=== PATIENT | female | born 1960 | race Two or more races ===

== ENCOUNTER 2019-05-09 11:46 | Emergency (ER) | payer SELFPAY ==
[~2019-05-09] VITALS: Ht 160 cm; Wt 81.6 kg
[2019-05-09 13:00] VITALS: BP 142/84
[2019-05-09] MEDS ORDERED: HYDROcodone-ACET 7.5/325MG TAB PO ONE (13:45)
== END 2019-05-09 14:09 | disposition home or self-care (01) ==
LOC: EDBD 11:46 → ER 11:46
DX: S52.572A Other intraarticular fracture of lower end of left radius, initial encounter for closed fracture (principal); S52.615A Nondisplaced fracture of left ulna styloid process, initial encounter for closed fracture; E78.5 Hyperlipidemia, unspecified; W19.XXXA Unspecified fall, initial encounter; Y93.89 Activity, other specified; Y99.8 Other external cause status; Y92.89 Other specified places as the place of occurrence of the external cause
CPT/HCPCS: 29125; 73110

== ENCOUNTER 2021-04-01 09:23 | Emergency (ER) | payer OTHER ==
[~2021-04-01] VITALS: Ht 157.5 cm; Wt 104.3 kg
[2021-04-01] MEDS ORDERED: ONDANSETRON HCL 4 MG/2 ML VIAL IV ONE (09:45)
[2021-04-01 10:57] LABS: Basophils # (auto) 0 10 ^3/uL (0-0.2); Basophils % (auto) 0.3 % (0.0-2.0); Eosinophils # (auto) 0.1 10 ^3/uL (0-0.8); Eosinophils % (auto) 1.1 % (0.0-7.0); Hematocrit 39.7 % (36.0-46.0); Hemoglobin 13.4 g/dL (12.2-16.2); Lymphocytes # (auto) 0.9 10 ^3/uL (0.4-5.4); Lymphocytes % (auto) 10.3 % (10.0-50.0); Mean Corpuscular Hemoglobin 29.5 pg (28.0-32.0); Mean Corpuscular Hgb Conc. 33.8 g/dL (32.0-36.0); Mean Corpuscular Volume 87.4 fL (80.0-100.0); Monocytes # (auto) 0.3 10 ^3/uL (0-1.3); Monocytes % (auto) 3.9 % (0.0-12.0); Neutrophils % (auto) 84.4 % (37.0-80.0); Nucleated Red Blood Cells % 0.4 %; Platelet Count (auto) 286 10^3/uL (140-450); Red Blood Cells 4.54 10^6/uL (4.0-5.20); Red Cell Distribution Width 13.8 % (11.8-14.3); White Blood Cell 8.3 10^3/uL (4.4-10.8)
[2021-04-01 11:15] LABS: Albumin 3.8 g/dL (3.4-5.0); Anion Gap 9 (5-15); Blood Urea Nitrogen 16 mg/dL (7-18); Calcium 8.6 mg/dL (8.5-10.1); Carbon Dioxide 24 mmol/L (21-32); Chloride 108 mmol/L (98-107); Glucose 98 mg/dL (74-106); Magnesium 2.4 mg/dL (1.6-2.6); Potassium 3.9 mmol/L (3.5-5.1); Sodium 141 mmol/L (136-145)
[2021-04-01 11:21] LABS: Alanine Aminotransferase 28 U/L (13-56); Alkaline Phosphatase 96 U/L (45-117); Aspartate Aminotransferase 18 U/L (15-37); BUN/Creatinine Ratio 25.4; Bilirubin, Total 0.6 mg/dL (0.2-1.0); GFR African American 123 mL/min; GFR Non-African American 102 mL/min; Total Protein 6.9 g/dL (6.4-8.2)
[2021-04-01 11:48] VITALS: BP 103/60
== END 2021-04-01 11:50 | disposition home or self-care (01) ==
LOC: EDBD 09:23 → EDUNIT# 09:23 → ER 09:23
DX: K52.9 Noninfective gastroenteritis and colitis, unspecified (principal); R07.9 Chest pain, unspecified; E78.5 Hyperlipidemia, unspecified
CPT/HCPCS: 36415; 70450; 71045; 74176; 80053; 83735; 84484; 85025; 93005; 96374; 99285; J2405

== ENCOUNTER 2021-04-07 00:45 | Emergency (ER) | payer OTHER ==
[~2021-04-07] VITALS: Ht 165.1 cm; Wt 90.7 kg
[2021-04-07] MEDS ORDERED: ONDANSETRON HCL 4 MG/2 ML VIAL ONE (01:11)
[2021-04-07] MEDS ORDERED: ONDANSETRON HCL 4 MG/2 ML VIAL IV ONE (01:30)
[2021-04-07] MEDS ORDERED: SODIUM CHLORIDE 0.9% 1,000 ML IV ONE (01:30)
[2021-04-07 01:33] LABS: Basophils # (auto) 0 10 ^3/uL (0-0.2); Basophils % (auto) 0.5 % (0.0-2.0); Eosinophils # (auto) 0.2 10 ^3/uL (0-0.8); Eosinophils % (auto) 1.8 % (0.0-7.0); Hematocrit 39.8 % (36.0-46.0); Hemoglobin 13.6 g/dL (12.2-16.2); Lymphocytes # (auto) 2.1 10 ^3/uL (0.4-5.4); Lymphocytes % (auto) 20.4 % (10.0-50.0); Mean Corpuscular Hemoglobin 29.6 pg (28.0-32.0); Mean Corpuscular Hgb Conc. 34.2 g/dL (32.0-36.0); Mean Corpuscular Volume 86.4 fL (80.0-100.0); Monocytes # (auto) 0.5 10 ^3/uL (0-1.3); Monocytes % (auto) 5.1 % (0.0-12.0); Neutrophils # (auto) 7.3 10 ^3/uL (1.6-8.6); Neutrophils % (auto) 72.2 % (37.0-80.0); Nucleated Red Blood Cells % 0.1 %; Red Blood Cells 4.61 10^6/uL (4.0-5.20); Red Cell Distribution Width 13.9 % (11.8-14.3); White Blood Cell 10.1 10^3/uL (4.4-10.8)
[2021-04-07 01:49] LABS: Alanine Aminotransferase 27 U/L (13-56); Albumin 3.8 g/dL (3.4-5.0); Anion Gap 12 (5-15); Aspartate Aminotransferase 18 U/L (15-37); BUN/Creatinine Ratio 34.9; Blood Urea Nitrogen 30 mg/dL (7-18); Calcium 8.7 mg/dL (8.5-10.1); Carbon Dioxide 24 mmol/L (21-32); Chloride 103 mmol/L (98-107); GFR African American 86 mL/min; GFR Non-African American 71 mL/min; Glucose 166 mg/dL (74-106); Potassium 3.4 mmol/L (3.5-5.1); Sodium 139 mmol/L (136-145)
[2021-04-07 01:54] LABS: Alkaline Phosphatase 98 U/L (45-117); Bilirubin, Total 0.6 mg/dL (0.2-1.0); Total Protein 7.1 g/dL (6.4-8.2)
[2021-04-07] MEDS ORDERED: PROMETHAZINE HCL 25 MG/ML 1ML IV ONE (02:00)
[2021-04-07] MEDS ORDERED: MORPHINE SULFATE INJECTION 2 MG/ML SYRG IM ONE (02:00)
[2021-04-07 03:22] VITALS: BP 123/55
== END 2021-04-07 03:34 | disposition home or self-care (01) ==
LOC: EDUNIT# 00:45 → ER 00:45 → EDBD 00:45 → ER 03:34
DX: R51.9 Headache, unspecified (principal); R11.2 Nausea with vomiting, unspecified; I10 Essential (primary) hypertension; E78.5 Hyperlipidemia, unspecified
CPT/HCPCS: 36415; 70450; 74176; 80053; 81002; 84484; 85025; 93005; 96361; 96372; 96374; 96375; 99285; J2270; J2405; J2550; J7030

== ENCOUNTER 2025-07-07 17:00 | Inpatient (IN) | payer OTHER ==
[~2025-07-07] VITALS: Ht 170.2 cm; Wt 104.2 kg
--- NOTE | 2025-07-07 17:12 | ED.PDOC ---
History of Present Illness HPI Comments This is a 64-year-old female with past medical history of vertigo presented to the ER via EMS with a complaint of severe vertigo and nausea whenever she is moving her head for last 2 hours prior to this visit. She is Citizen Of [place] speaking and severely nauseous and dizzy not able to give any history. Chief Complaint: Dizziness Time Seen by MD: 17:01 Primary Care Provider: KODAKK Allergies: Coded Allergies: NO KNOWN ALLERGIES (Unverified , 05/09/19) Information Source: Patient Mode of Arrival: EMS Severity: Severe Timing: Hours Duration: Since onset Prehospital treatment: None Past Medical History PAST MEDICAL HISTORY: High Lipids, HTN Past Medical History (Other): Vertigo Surgical History: Denies all surgeries [employer] History: Denies all [employer] Hx Family History Family History: Unknown Social History Smoker: Non-Smoker Alcohol: Denies ETOH Use Drugs: Denies Drug Use Lives In: Home Constitutional: denies: chills, diaphoresis, fatigue, fever, malaise, sweats, weakness, others EENTM: denies: blurred vision, double vision, ear bleeding, ear discharge, ear drainage, ear pain, ear ringing, eye pain, eye redness, hearing loss, mouth pain, mouth swelling, nasal discharge, nose bleeding, nose congestion, nose pain, photophobia, tearing, throat pain, throat swelling, voice changes, others Respiratory: denies: cough, hemoptysis, orthopnea, SOB at rest, shortness of breath, SOB with excertion, stridor, wheezing, others Cardiovascular: reports: dizzy spells; denies: chest pain, diaphoresis, Dyspnea on exertion, edema, irregular heart beat, left arm pain, lightheadedness, palpitations, PND, syncope, others Gastrointestinal: reports: nausea; denies: abdomen distended, abdominal pain, blood streaked bowels, constipated, diarrhea, dysphagia, difficulty swallowing, hematemesis, melena, poor appetite, poor fluid intake, rectal bleeding, rectal pain, vomiting, others Genitourinary: denies: abnormal vagina bleeding, burning, dyspareunia, dysuria, flank pain, frequency, hematuria, incontinence, pain, , vagina discharge, urgency, others Neurological: reports: dizziness; denies: fainting, headache, left sided numbness, left sided weakness, numbness, paresthesia, pre-existing deficit, right sided numbness, right sided weakness, seizure, speech problems, tingling, tremors, weakness, others Musculoskeletal: denies: back pain, gout, joint pain, joint swelling, muscle pain, muscle stiffness, neck pain, others Integumetry: denies: bruises, change in color, change in hair/nails, dryness, laceration, lesions, lumps, rash, wounds, others Allergic/Immunocompromised: denies: Difficulty Healing, Frequent Infections, Hives, Itching, others Hematologic/Lymphatic: denies: anemia, blood clots, easy bleeding, easy bruising, swollen glands, others Endocrine: denies: excessive hunger, excessive sweating, excessive thirst, excessive urination, flushing, intolerance to cold, intolerance to heat, unexplained weight gain, unexplained weight loss, others Psychiatric: denies: anxiety, bipolar disorder, depression, hopeless, panic disorder, schizophrenia, sleepless, suicidal, others Physical Exam General Appearance: Moderate Distress HEENT: Normal ENT Inspection, Pharynx Normal, TMs Normal Neck: Full Range of Motion, Non-Tender, Normal, Normal Inspection Respiratory: Chest Non-Tender, Lungs Clear, No Accessory Muscle Use, No Respiratory Distress, Normal Breath Sounds Cardiovascular: No Edema, No JVD, No Murmur, No Gallop, Normal Peripheral Pulses, Regular Rate/Rhythm Breast Exam: Deferred Gastrointestinal: No Organomegaly, Non Tender, No Pulsatile Mass, Normal Bowel Sounds, Soft Genitalia: Deferred Pelvic: Deferred Rectal: Deferred Extremities: NOT DONE Neurologic: Dizziness Cerebellar Function: NOT DONE Reflexes: NOT DONE Skin: NOT DONE Peripheral Pulses: 2+ carotid (R), 2+ carotid (L), 2+ femoral (R), 2+ femoral (L), 2+ dorsalis pedis (R), 2+ dorsalis pedis (L), 2+ Radial (R), 2+ Radial (L), 2+ Brachial (R), 2+ Brachial (L) Lymphatic: NOT DONE Was a procedure done? Was a procedure done?: No Differential Dx Considerations may include: Dizziness, BPPV, autonomic instability, CVA X-Ray, Labs, Meds, VS Vital Signs Date Time Temp Pulse Resp B/P (MAP) Pulse Ox O2 Delivery O2 Flow Rate FiO2 07/07/25 17:59 81 20 99 Room Air* 0 21 07/07/25 17:59 98.4 81 20 109/77 (88) 99 98.4 07/07/25 17:10 70 07/07/25 17:07 97.5 84 17 149/93 97 97.5 Lab Test 07/07/25 17:37 07/07/25 17:32 Range/Units B-Type Natriuretic Peptide 40.21 0-100 pg/mL White Blood Count 10.4 4.4-10.8 10^3/uL Red Blood Count 5.26 H 4.0-5.20 10^6/uL Hemoglobin 15.0 12.2-16.2 g/dL Hematocrit 44.0 36.0-46.0 % Mean Corpuscular Volume 83.6 80.0-100.0 fL Mean Corpuscular Hemoglobin 28.5 28.0-32.0 pg Mean Corpuscular Hemoglobin Concent 34.0 32.0-36.0 g/dL Red Cell Distribution Width 14.2 11.8-14.3 % Platelet Count 292 140-450 10^3/uL Mean Platelet Volume 7.8 6.9-10.8 fL Neutrophils (%) (Auto) 78.1 37.0-80.0 % Lymphocytes (%) (Auto) 16.2 10.0-50.0 % Monocytes (%) (Auto) 4.9 0.0-12.0 % Eosinophils (%) (Auto) 0.4 0.0-7.0 % Basophils (%) (Auto) 0.4 0.0-2.0 % Neutrophils # (Auto) 8.1 1.6-8.6 10 ^3/uL Lymphocytes # (Auto) 1.7 0.4-5.4 10 ^3/uL Monocytes # (Auto) 0.5 0-1.3 10 ^3/uL Eosinophils # (Auto) 0 0-0.8 10 ^3/uL Basophils # (Auto) 0 0-0.2 10 ^3/uL Nucleated Red Blood Cells 0.1 % Sodium Level 143 136-145 mmol/L Potassium Level 4.1 3.5-5.1 mmol/L Chloride Level 108 H 98-107 mmol/L Carbon Dioxide Level 22 20-31 mmol/L Anion Gap 13 5-15 Blood Urea Nitrogen 24 H 9-23 mg/dL Creatinine 0.77 0.550-1.02 mg/dL Glomerular Filtration Rate Calc 85 >90 mL/min BUN/Creatinine Ratio 31.2 H 10.0-20.0 Serum Glucose 150 H 74-106 mg/dL Calcium Level 9.6 8.7-10.4 mg/dL Troponin I High Sensitivity < 3 L </=34 ng/L Current Medications Medications (Trade) Dose Ordered Sig/Tamra Route Start Time Stop Time Status Last Admin Sodium Chloride 500 ml @ 500 mls/hr Q1H ONCE IV 07/07/25 17:15 07/07/25 18:14 DC 07/07/25 17:47 Ondansetron HCl (Zofran) 4 mg ONCE ONCE IV 07/07/25 17:15 07/07/25 17:16 DC 07/07/25 17:47 Metoclopramide HCl (Reglan Injection) 5 mg ONCE ONCE IV 07/07/25 18:00 07/07/25 18:01 DC 07/07/25 18:09 Lorazepam (Ativan Inj) 0.5 mg ONCE ONCE IV 07/07/25 18:45 07/07/25 18:46 DC 07/07/25 18:48 X-Ray, Labs, Meds, VS Comment Procedure: CT HEAD WITHOUT CONTRAST Study Date and Requested Time: 07/07/2025 05:10 PM History: Dizziness Comparison: HEAD WITHOUT CONTRAST on DOS: 04/07/21, HEAD WITHOUT CONTRAST on DOS: 04/01/21 Dose: CTDI: 63.52 mGy DLP: 1251.53 mGycm Technique: Multiplanar images obtained through the brain without intravenous contrast. Findings: Normal brain volume and formation. Mild to moderate chronic small vessel ischemic changes. No hemorrhages, masses, mass effect, midline shift, herniation or cytotoxic edema following a large vascular territory. No intra-axial or extra-axial fluid collections. No evidence of hydrocephalus. The basal cisterns are patent. The pituitary gland, sella and parasellar regions are unremarkable. The cerebellar tonsils are in normal position. The cerebellum is unremarkable. The orbits and globes are unremarkable. Minimal mucoperiosteal thickening of the ethmoid air cells. Otherwise, the paranasal sinuses and mastoids are clear. There are no worrisome calvarial lesions. Right frontal scalp scarring. Heterogeneous appearance of the parotid glands. Impression: No evidence of acute intracranial abnormality. If symptoms persist, consider MRI for further evaluation. CHEST RADIOGRAPH Indication: Dizziness Technique: XY CHEST PORTABLE COMPARISON: None FINDINGS: The cardiac silhouette is unremarkable. Interstitial airspace opacities which could represent sequela of pulmonary edema, atypical infection, chronic lung changes/disease.. The lungs demonstrate bilateral patchy airspace opacities. The pulmonary vasculature is prominent. Small bilateral pleural effusions. There is no pneumothorax. Aortic atherosclerotic disease. IMPRESSION: As above Images Reviewed?: Images reviewed and evaluated by me Time of 1ST Reevaluation: 18:00 Reevaluation 1ST: Unchanged Patient Education/Counseling: Diagnosis, Treatment Family Education/Counseling: No Family Present Comments This is a 64-year-old female with past medical history of vertigo presented to the ER via EMS severe dizziness and nausea since 3:00 p.m. today History was limited as the patient was severely dizzy and nauseous The patient was given IV bolus, IV ondansetron 4 mg once After giving ondansetron the patient was still complaining of nausea than IV metoclopramide 5 mg once given Can not give meclizine p.o. because of nausea The patient was extremely anxious and Ativan 0.5 mg IV given to calm her down. CT scan of the head without IV contrast demonstrated normal study. Regarding patient's presentation and clinical exam preliminary diagnosis dizziness likely due to BPPV Considering patient's age, patient need inpatient admission for further evaluation and management of dizziness. SEPSIS Sepsis Screen Date sepsis recognized/suspect: Jul 07, 2025 Time Sepsis recognized/suspect: 1700 Recent Procedure: No On Antibiotic Therapy: No Respiratory Rate >20: No Heart Rate >90: No Temp<36 C (96.8 F) or >38.3 C: No SBP <90 or MAP <65 mmHG: No New Acute Mental Status Change: No Is the patient on CPAP, BIPAP,: No Physician Orders Chest Portable (07/07/25 17:08) Urinalysis (07/07/25 17:08) Head Without Contrast (07/07/25 17:08) Orthostatic Vital Signs (07/07/25 18:01) Vital Signs Date Time Temp Pulse Resp B/P (MAP) Pulse Ox O2 Delivery O2 Flow Rate FiO2 07/07/25 17:59 81 20 99 Room Air* 0 21 07/07/25 17:59 98.4 81 20 109/77 (88) 99 98.4 07/07/25 17:10 70 07/07/25 17:07 97.5 84 17 149/93 97 97.5 Laboratory Tests Test 07/07/25 17:32 White Blood Count 10.4 10^3/uL (4.4-10.8) Medications Medications Dose Ordered Sig/Tamra Route Start Time Stop Time Status Last Admin Dose Admin Lorazepam 0.5 mg ONCE ONCE IV 07/07/25 18:45 07/07/25 18:46 DC 07/07/25 18:48 Metoclopramide HCl 5 mg ONCE ONCE IV 07/07/25 18:00 07/07/25 18:01 DC 07/07/25 18:09 Ondansetron HCl 4 mg ONCE ONCE IV 07/07/25 17:15 07/07/25 17:16 DC 07/07/25 17:47 Sodium Chloride 500 ml @ 500 mls/hr Q1H ONCE IV 07/07/25 17:15 07/07/25 18:14 DC 07/07/25 17:47 Departure 1 Departure Time of Disposition: 18:08 Impression: Primary Impression: Dizziness Additional Impression: Benign paroxysmal positional vertigo Disposition: 30 STILL A PATIENT Admit to: Tele Condition: Guarded Critical Care Note Critical Care Time?: No Stability Stability form required: SHERICE Brizuela RESIDENT Jul 07, 2025 17:11
[2025-07-07] MEDS ORDERED: ONDANSETRON HCL 4 MG/2 ML VIAL IV ONE (17:15)
--- NOTE | 2025-07-07 17:43 | DVH ---
Procedure: CT HEAD WITHOUT CONTRAST Study Date and Requested Time: 07/07/2025 05:10 PM History: Dizziness Comparison: HEAD WITHOUT CONTRAST on DOS: 04/07/21, HEAD WITHOUT CONTRAST on DOS: 04/01/21 Dose: CTDI: 63.52 mGy DLP: 1251.53 mGycm Technique: Multiplanar images obtained through the brain without intravenous contrast. Findings: Normal brain volume and formation. Mild to moderate chronic small vessel ischemic changes. No hemorrhages, masses, mass effect, midline shift, herniation or cytotoxic edema following a large v ascular territory. No intra-axial or extra-axial fluid collections. No evidence of hydrocephalus. The basal cisterns are patent. The pituitary gland, sella and parasellar regions are unremarkable. The cerebellar tonsils are in nor mal position. The cerebellum is unremarkable. The orbits and globes are unremarkable. Minimal mucoperiosteal thickening of the ethmoid air cells. Otherwise, the paranasal sinuses and mastoids are clear. There are no worrisome calvarial lesions. Ri ght frontal scalp scarring. Heterogeneous appearance of the parotid glands. Impression: No evidence of acute intracranial abnormality. If symptoms persist, consider MRI for further evaluati on.
[2025-07-07] MEDS: ONDANSETRON HCL 4 MG/2 ML VIAL IV ONE (17:47)
[2025-07-07] MEDS: SODIUM CHLORIDE 0.9% 500 ML IV ONE (17:47)
--- NOTE | 2025-07-07 17:54 | DVH ---
CHEST RADIOGRAPH Indication: Dizziness Technique: XY CHEST PORTABLE COMPARISON: None FINDINGS: The cardiac silhouette is unremarkable. Interstitial airspace opacities which could represent sequela of pulmonary edema, atypical infection, chronic lung changes/disease.. The lungs demonstrate bilater al patchy airspace opacities. The pulmonary vasculature is prominent. Small bilateral pleural effusio ns. There is no pneumothorax. Aortic atherosclerotic disease. IMPRESSION: As above
[2025-07-07 17:59] VITALS: PULSE 81; RESP 20; O2SAT 99
[2025-07-07 18:02] LABS: Hematocrit 44.0 % (36.0-46.0); Hemoglobin 15.0 g/dL (12.2-16.2); Mean Corpuscular Hemoglobin 28.5 pg (28.0-32.0); Mean Corpuscular Volume 83.6 fL (80.0-100.0); Nucleated Red Blood Cells % 0.1 %
[2025-07-07 18:08] LABS: Anion Gap 13 (5-15); Carbon Dioxide 22 mmol/L (20-31); Potassium 4.1 mmol/L (3.5-5.1); Sodium 143 mmol/L (136-145)
[2025-07-07 18:09] LABS: Calcium 9.6 mg/dL (8.7-10.4)
[2025-07-07] MEDS: METOCLOPRAMIDE HCL 5MG/ml INJ 2ml VIAL IV ONE (18:09)
[2025-07-07 18:14] LABS: BUN/Creatinine Ratio 31.2 (10.0-20.0)
[2025-07-07 18:21] LABS: Blood Urea Nitrogen 24 mg/dL (9-23); Chloride 108 mmol/L (98-107); Glucose 150 mg/dL (74-106)
[2025-07-07] MEDS: LORazepam 2MG/ML-1ML VIAL IV ONE (18:48)
[2025-07-07] MEDS: MECLIZINE HCL 25 MG TAB PO ONE (18:48)
--- NOTE | 2025-07-07 18:59 | ECG ---
[facility] Test Date: 2025-07-07 Test Time: 17:08:26 Pat Name: ESEQUIEL HOUSE Department: [facility] ED Patient ID: [id number] Room: [address] [place] [address] Gender: F Physician'S Aide: USMAN : 1960 Requested By: SHERICE JOE Order Number: [id number] Reading MD: Jose Cruz Measurements Intervals [place] Rate: 70 P: 26 UT: 167 QRS: 2 QRSD: 96 T: 39 QT: 454 QTc: 490 Interpretive Statements Sinus rhythm Borderline prolonged QT interval Electronically Signed On 07-12-2025 17:58:26 PDT by Jose Cruz Please click the below link to view image of tracing.
[2025-07-07 19:30] VITALS: PULSE 73; RESP 20; O2SAT 100
[2025-07-07] MEDS: ONDANSETRON HCL 4 MG/2 ML VIAL IV PRN (21:12)
[2025-07-07] MEDS: MECLIZINE HCL 25 MG TAB PO PRN (21:31)
[2025-07-07] MEDS: ATORVASTATIN 20 MG TAB PO SCH (22:10)
[2025-07-08] VITALS (7 sets, daily range): BP systolic 97–128; BP diastolic 51–73; PULSE 59–78; RESP 16–20; TEMP 97.1–98.1; O2SAT 95–98
--- NOTE | 2025-07-08 00:16 | DVHHP2 ---
History of Present Illness Reason for Visit: Dizziness History of Present Illness 64-year-old female presents for evaluation of dizziness. Patient reports a one day history of continuous dizziness with associated nausea and vomiting. Patient reports initially having a frontal headache and subsequently developing dizziness. She reports having flare-ups of dizziness in the past couple of years. No blurred vision or unilateral weakness. Past Medical History Diabetes mellitus, dyslipidemia, hypertension Past Surgical History Denies Family History Noncontributory Smoke: No ALCOHOL: none Drugs: None Lives: with Family Review of Systems Review of Systems Review of systems are currently negative otherwise addressed in HPI. Allergies: Coded Allergies: NO KNOWN ALLERGIES (Unverified , 05/09/19) Medications Current Medications Medications Dose Ordered Sig/Tamra Route Start Time Stop Time Status Last Admin Dose Admin Atorvastatin Calcium 20 mg HS PO 07/07/25 22:00 07/07/25 22:10 20 MG Meclizine HCl 25 mg Q6HPRN PRN PO 07/07/25 19:45 07/07/25 21:31 25 MG Ondansetron HCl 4 mg Q4HP PRN IV 07/07/25 19:45 07/07/25 21:12 4 MG Acetaminophen 650 mg Q6HP PRN PO 07/07/25 19:45 Exam Vital Signs Vital Signs Date Time Temp Pulse Resp B/P (MAP) Pulse Ox O2 Delivery O2 Flow Rate FiO2 07/07/25 23:30 83 19 110/42 (64) 100 07/07/25 19:30 97.7 97.7 07/07/25 19:30 Room Air* 0 21 Exam Gen: 64-year-old female in no apparent distress. Skin: Warm, dry, normal color and texture, no rash. HEENT: Normocephalic atraumatic, mucous membranes moist and pink. Neck: Cervical and supraclavicular nodes normal without enlargement, trachea is midline, thyroid gland is normal without masses. Pulmonary: Clear to auscultation and percussion bilaterally. Cardiac: Regular rate and rhythm. No murmur Abdomen: Soft, nontender, nondistended, bowel sounds present all 4 quadrants, no guarding, no rigidity, no organomegaly. Extremities: No cyanosis, clubbing, no edema Neuro: Cranial nerves II through XII grossly intact, normal affect and speech, no focal motor deficits. Labs/Xrays ORDERING PHYSICIAN: SHERICE JOE PROCEDURE(s): CXRP - CHEST PORTABLE REASON: Dizziness ORDER NUMBER(s): [id number], ACCESSION NUMBER(s): [id number] CHEST RADIOGRAPH Indication: Dizziness Technique: XY CHEST PORTABLE COMPARISON: None FINDINGS: The cardiac silhouette is unremarkable. Interstitial airspace opacities which could represent sequela of pulmonary edema, atypical infection, chronic lung changes/disease.. The lungs demonstrate bilateral patchy airspace opacities. The pulmonary vasculature is prominent. Small bilateral pleural effusions. There is no pneumothorax. Aortic atherosclerotic disease. IMPRESSION: As above RING PHYSICIAN: SHERICE JOE PROCEDURE(s): HWOCT - HEAD WITHOUT CONTRAST REASON: Dizziness ORDER NUMBER(s): [id number], ACCESSION NUMBER(s): [id number] Procedure: CT HEAD WITHOUT CONTRAST Study Date and Requested Time: 07/07/2025 05:10 PM History: Dizziness Comparison: HEAD WITHOUT CONTRAST on DOS: 04/07/21, HEAD WITHOUT CONTRAST on DOS: 04/01/21 Dose: CTDI: 63.52 mGy DLP: 1251.53 mGycm Technique: Multiplanar images obtained through the brain without intravenous contrast. Findings: Normal brain volume and formation. Mild to moderate chronic small vessel ischemic changes. No hemorrhages, masses, mass effect, midline shift, herniation or cytotoxic edema following a large vascular territory. No intra-axial or extra-axial fluid collections. No evidence of hydrocephalus. The basal cisterns are patent. The pituitary gland, sella and parasellar regions are unremarkable. The cerebellar tonsils are in normal position. The cerebellum is unremarkable. The orbits and globes are unremarkable. Minimal mucoperiosteal thickening of the ethmoid air cells. Otherwise, the paranasal sinuses and mastoids are clear. There are no worrisome calvarial lesions. Right frontal scalp scarring. Heterogeneous appearance of the parotid glands. Impression: No evidence of acute intracranial abnormality. If symptoms persist, consider MRI for further evaluation. Labs Test 07/07/25 17:37 07/07/25 17:32 Range/Units B-Type Natriuretic Peptide 40.21 0-100 pg/mL White Blood Count 10.4 4.4-10.8 10^3/uL Red Blood Count 5.26 H 4.0-5.20 10^6/uL Hemoglobin 15.0 12.2-16.2 g/dL Hematocrit 44.0 36.0-46.0 % Mean Corpuscular Volume 83.6 80.0-100.0 fL Mean Corpuscular Hemoglobin 28.5 28.0-32.0 pg Mean Corpuscular Hemoglobin Concent 34.0 32.0-36.0 g/dL Red Cell Distribution Width 14.2 11.8-14.3 % Platelet Count 292 140-450 10^3/uL Mean Platelet Volume 7.8 6.9-10.8 fL Neutrophils (%) (Auto) 78.1 37.0-80.0 % Lymphocytes (%) (Auto) 16.2 10.0-50.0 % Monocytes (%) (Auto) 4.9 0.0-12.0 % Eosinophils (%) (Auto) 0.4 0.0-7.0 % Basophils (%) (Auto) 0.4 0.0-2.0 % Neutrophils # (Auto) 8.1 1.6-8.6 10 ^3/uL Lymphocytes # (Auto) 1.7 0.4-5.4 10 ^3/uL Monocytes # (Auto) 0.5 0-1.3 10 ^3/uL Eosinophils # (Auto) 0 0-0.8 10 ^3/uL Basophils # (Auto) 0 0-0.2 10 ^3/uL Nucleated Red Blood Cells 0.1 % Sodium Level 143 136-145 mmol/L Potassium Level 4.1 3.5-5.1 mmol/L Chloride Level 108 H 98-107 mmol/L Carbon Dioxide Level 22 20-31 mmol/L Anion Gap 13 5-15 Blood Urea Nitrogen 24 H 9-23 mg/dL Creatinine 0.77 0.550-1.02 mg/dL Glomerular Filtration Rate Calc 85 >90 mL/min BUN/Creatinine Ratio 31.2 H 10.0-20.0 Serum Glucose 150 H 74-106 mg/dL Calcium Level 9.6 8.7-10.4 mg/dL Troponin I High Sensitivity < 3 L </=34 ng/L SEPSIS Sepsis Screen Date sepsis recognized/suspect: Jul 07, 2025 Time Sepsis recognized/suspect: 1929 Recent Procedure: No On Antibiotic Therapy: No Respiratory Rate >20: No Heart Rate >90: No Temp<36 C (96.8 F) or >38.3 C: No SBP <90 or MAP <65 mmHG: No New Acute Mental Status Change: No Is the patient on CPAP, BIPAP,: No Physician Orders Chest Portable (07/07/25 17:08) Urinalysis (07/07/25 17:08) Head Without Contrast (07/07/25 17:08) Orthostatic Vital Signs (07/07/25 18:01) Brain Head Wo Contrast (07/07/25 19:42) Atorvastatin (Lipitor) (07/07/25 22:00) Meclizine Tablet (Antivert Tablet) (07/07/25 19:45) Admit (07/07/25 19:42) Ondansetron Hcl (Zofran) (07/07/25 19:45) Cardiac Diet-2gna,Lofat,Lochol (07/08/25 Breakfast) Condition: Stable (07/07/25 19:42) Acetaminophen Tablet (Tylenol Tablet) (07/07/25 19:45) Bedrest With Bathroom Privileg (07/07/25 19:42) Vital Signs Date Time Temp Pulse Resp B/P (MAP) Pulse Ox O2 Delivery O2 Flow Rate FiO2 07/07/25 23:30 83 19 110/42 (64) 100 07/07/25 21:30 61 22 130/64 (86) 100 07/07/25 19:30 97.7 73 20 109/77 (88) 100 97.7 07/07/25 19:30 73 20 100 Room Air* 0 21 07/07/25 17:59 81 20 99 Room Air* 0 21 07/07/25 17:59 98.4 81 20 109/77 (88) 99 98.4 07/07/25 17:10 70 07/07/25 17:07 97.5 84 17 149/93 97 97.5 Laboratory Tests Test 07/07/25 17:32 White Blood Count 10.4 10^3/uL (4.4-10.8) Medications Medications Dose Ordered Sig/Tamra Route Start Time Stop Time Status Last Admin Dose Admin Atorvastatin Calcium 20 mg HS PO 07/07/25 22:00 07/07/25 22:10 20 MG Lorazepam 0.5 mg ONCE ONCE IV 07/07/25 18:45 07/07/25 18:46 DC 07/07/25 18:48 0.5 MG Meclizine HCl 25 mg Q6HPRN PRN PO 07/07/25 19:45 07/07/25 21:31 25 MG Metoclopramide HCl 5 mg ONCE ONCE IV 07/07/25 18:00 07/07/25 18:01 DC 07/07/25 18:09 5 MG Ondansetron HCl 4 mg ONCE ONCE IV 07/07/25 17:15 07/07/25 17:16 DC 07/07/25 17:47 4 MG Ondansetron HCl 4 mg Q4HP PRN IV 07/07/25 19:45 07/07/25 21:12 4 MG Sodium Chloride 500 ml @ 500 mls/hr Q1H ONCE IV 07/07/25 17:15 07/07/25 18:14 DC 07/07/25 17:47 500 MLS/HR Assessment/Plan Assessment/Plan Assessment Dizziness Hypertension Diabetes mellitus Plan Admit the patient to [facility] to the hospitalist Ritalijoana MRI of the brain pending Continue treatment per orders. Plan discussed with: Patient My Orders Orders - RHEA BAHKTA Procedure Category Date Status Time Brain Head Wo Contrast MRI 07/07/25 Logged 19:42 Atorvastatin (Lipitor) PHA 07/07/25 In Process 22:00 Meclizine Tablet PHA 07/07/25 In Process (Antivert Tablet) 19:45 Admit ADMIT 07/07/25 Transmitted 19:42 Ondansetron Hcl PHA 07/07/25 In Process (Zofran) 19:45 Cardiac DIET 07/08/25 Transmitted Diet-2gna,Lofat,Lochol Breakfast Condition: Stable YOUNG 07/07/25 In Process 19:42 Acetaminophen Tablet PHA 07/07/25 In Process (Tylenol Tablet) 19:45 Bedrest With Bathroom YOUNG 07/07/25 In Process Privileg 19:42 Date of Service: Jul 07, 2025 Billing Provider: RHEA BHAKTA Common Visit Codes: [id number] INP/OBS CARE (MOD) RHEA BHAKTA [facility] Jul 08, 2025 00:16
[2025-07-08] MEDS: ACETAMINOPHEN 325 MG TAB PO PRN (08:28)
--- NOTE | 2025-07-08 09:22 | DVH ---
PROCEDURE: MRI BRAIN HEAD WO CONTRAST INDICATION: Dizziness EXAM DATE: 07/08/2025 08:41 AM COMPARISON: CT HEAD WITHOUT CONTRAST on DOS: 07/07/25, HEAD WITHOUT CONTRAST on DOS: 04/07/21, HEAD WITHO UT CONTRAST on DOS: 04/01/21 TECHNIQUE: MRI of the brain without intravenous contrast. FINDINGS: Diffusion weighted images of the brain demonstrate no evidence of acute infarction. There is no evidence of acute intracranial hemorrhage, extra-axial collection, mass effect, midline s hift, herniation or hydrocephalus. The ventricles, sulci and cisterns appear age appropriate. Moderate changes of chronic microvascular ischemic disease. Left choroid plexus cyst. There are no signal abnormalities on the susceptibility weighted sequences. The major vascular flow voids are present. The visualized paranasal sinuses and mastoid air cells are clear. Cysts in the bilateral parotid gla nds. IMPRESSION: 1. No evidence of acute infarction, intracranial hemorrhage, mass effect or hydrocephalus. Moderate c hanges of chronic microvascular ischemic disease. Left choroid plexus cyst. Cysts in the bilateral p arotid glands. This could be further evaluated with ultrasound. HS:Y
--- NOTE | 2025-07-08 13:26 | DVHPN2 ---
Subjective 64-year-old female came for dizziness She feels her balance is off Changes from previous H/P or p: Changes Objective Vitals Vital Signs Date Time Temp Pulse Resp B/P (MAP) Pulse Ox O2 Delivery O2 Flow Rate FiO2 07/08/25 08:55 98.0 59 16 128/66 (86) 95 98.0 07/08/25 08:00 Nasal Cannula* 3 32 Intake/Output Intake and Output 07/08/25 07:00 Intake Total 0 ml Balance 0 ml Intake Oral 0 ml # Voids 1 General Appearance: Alert, Oriented X3, Cooperative Lungs: Clear to auscultation, Normal air movement Cardiovascular: Regular rate, Normal S1, Normal S2 Abdomen: Normal bowel sounds, Soft, No tenderness Extremities: No edema Medications Current Medications Medications Dose Ordered Sig/Tamra Route Start Time Stop Time Status Last Admin Dose Admin Atorvastatin Calcium 20 mg HS PO 07/07/25 22:00 07/07/25 22:10 20 MG Meclizine HCl 25 mg Q6HPRN PRN PO 07/07/25 19:45 07/07/25 21:31 25 MG Ondansetron HCl 4 mg Q4HP PRN IV 07/07/25 19:45 07/07/25 21:12 4 MG Acetaminophen 650 mg Q6HP PRN PO 07/07/25 19:45 07/08/25 08:28 650 MG Laboratory Results Laboratory Tests 07/07/25 17:32 Chemistry Test 07/07/25 17:32 Calcium Level 9.6 mg/dL (8.7-10.4) Cardiac Markers Test 07/07/25 17:37 B-Type Natriuretic Peptide 40.21 pg/mL (0-100) Assessment/Plan Assessment/Plan Dizziness Type 2 diabetes Dyslipidemia Hypertension PLAN: MRI brain Meclizine Physical therapy Full code Plan discussed with: Patient Date of Service: Jul 08, 2025 Billing Provider: DANIEL GREWAL MD Common Visit Codes: NOT BILLABLE DANIEL GREWAL MD Jul 08, 2025 13:26
[2025-07-09 01:00] VITALS: BP 119/72; PULSE 57; RESP 20; TEMP 97.7; O2SAT 97
[2025-07-09 05:00] VITALS: BP 115/68; PULSE 66; RESP 20; TEMP 97.7; O2SAT 95
[2025-07-09 08:00] VITALS: PULSE 53; RESP 17; O2SAT 97
[2025-07-09 09:03] VITALS: BP 124/64; PULSE 53; RESP 17; TEMP 98; O2SAT 97
[2025-07-09] MEDS ORDERED: MECL1TAB42 PO (09:54)
--- NOTE | 2025-07-09 09:56 | DVHDS2 ---
Discharge Summary Date of Admission Jul 07, 2025 at 19:42 Date of Discharge: Jul 09, 2025 Labs/Diagnostic Data: Laboratory Results Test 07/07/25 17:37 07/07/25 17:32 B-Type Natriuretic Peptide 40.21 pg/mL (0-100) White Blood Count 10.4 10^3/uL (4.4-10.8) Red Blood Count 5.26 10^6/uL (4.0-5.20) Hemoglobin 15.0 g/dL (12.2-16.2) Hematocrit 44.0 % (36.0-46.0) Mean Corpuscular Volume 83.6 fL (80.0-100.0) Mean Corpuscular Hemoglobin 28.5 pg (28.0-32.0) Mean Corpuscular Hemoglobin Concent 34.0 g/dL (32.0-36.0) Red Cell Distribution Width 14.2 % (11.8-14.3) Platelet Count 292 10^3/uL (140-450) Mean Platelet Volume 7.8 fL (6.9-10.8) Neutrophils (%) (Auto) 78.1 % (37.0-80.0) Lymphocytes (%) (Auto) 16.2 % (10.0-50.0) Monocytes (%) (Auto) 4.9 % (0.0-12.0) Eosinophils (%) (Auto) 0.4 % (0.0-7.0) Basophils (%) (Auto) 0.4 % (0.0-2.0) Neutrophils # (Auto) 8.1 10 ^3/uL (1.6-8.6) Lymphocytes # (Auto) 1.7 10 ^3/uL (0.4-5.4) Monocytes # (Auto) 0.5 10 ^3/uL (0-1.3) Eosinophils # (Auto) 0 10 ^3/uL (0-0.8) Basophils # (Auto) 0 10 ^3/uL (0-0.2) Nucleated Red Blood Cells 0.1 % Sodium Level 143 mmol/L (136-145) Potassium Level 4.1 mmol/L (3.5-5.1) Chloride Level 108 mmol/L (98-107) Carbon Dioxide Level 22 mmol/L (20-31) Anion Gap 13 (5-15) Blood Urea Nitrogen 24 mg/dL (9-23) Creatinine 0.77 mg/dL (0.550-1.02) Glomerular Filtration Rate Calc 85 mL/min (>90) BUN/Creatinine Ratio 31.2 (10.0-20.0) Serum Glucose 150 mg/dL (74-106) Calcium Level 9.6 mg/dL (8.7-10.4) Troponin I High Sensitivity < 3 ng/L (</=34) Other Laboratory Tests 07/07/25 17:32 Brief Hx & Hospital Course: Final diagnoses Dizziness most likely benign positional vertigo Type 2 diabetes Dyslipidemia Hypertension 64-year-old female who was admitted for dizziness and workup was negative including a CT scan of the head and MRI of the brain She was given meclizine Overall she is doing better She is just complaining of headache today Otherwise she is asymptomatic She will be discharged home on meclizine p.r.n. Continue the other home medications Follow up with the primary care physician Condition at Discharge: Stable Final Diagnosis/Problems List Dizziness Type 2 diabetes Dyslipidemia Hypertension Discharge Disposition: Home SNF Discharge Will this Physician continue t: No Discharge Instruct/Medications Scheduled PRN Meclizine HCl (Meclizine 25), 25 MG PO Q8HP PRN Discharge Statement: "Patient was advised to return to the ER or call 911 if any headaches, dizziness, shortness of breath, chest pain, abdominal pain, bleeding, fevers, or worsening of medical condition. Patient was counseled about treatment plan, medications, possible side effects, patientverbalized understanding. All questions were answered to the best of my ability. This discharge took greater then 30 minutes in planning, reviewing documentation, counseling the patient, and discussing with other team members." ASSESSMENT ASSESSMENT Assessment Date of Service: Jul 09, 2025 Billing Provider: DANIEL GREWAL MD Common Visit Codes: NOT BILLABLE DANIEL GREWAL MD Jul 09, 2025 09:56
[2025-07-09 12:12] VITALS: BP 124/64; PULSE 53; RESP 17; TEMP 36.7; O2SAT 97
[2025-07-09 13:19] VITALS: BP 111/74; PULSE 63; RESP 17; TEMP 97.2; O2SAT 96
== END 2025-07-09 13:50 | disposition home or self-care (01) | DRG 149 ==
LOC: ER 17:00 → EDBD 17:00 → OVERFLOW 19:42 → TELE-EAST 23:58 → EAST 07-08 02:45
PROVIDERS: ADMIT Internal Medicine Geriatric Medicine; ATTEND Internal Medicine Geriatric Medicine
DX: H81.10 Benign paroxysmal vertigo, unspecified ear (principal); E11.9 Type 2 diabetes mellitus without complications; I10 Essential (primary) hypertension; E78.5 Hyperlipidemia, unspecified
CPT/HCPCS: 36415; 70450; 70551; 71045; 80048; 83880; 84484; 85025; 93005; 96374; 96375; 97163; G0378; J2405